=== PATIENT | male | born 1995 | race Caucasian/White ===

== ENCOUNTER 2018-10-26 21:57 | Inpatient (IN) | payer MEDICAID, OTHER ==
[~2018-10-26] VITALS: Ht 181.6 cm; Wt 73.8 kg
[2018-10-26] MEDS ORDERED: QUEtiapine FUMARATE 100 MG TABLET PO PRN (22:45)
[2018-10-26] MEDS ORDERED: LORazepam 2 MG TABLET PO PRN (22:45)
[2018-10-27 05:53] VITALS: BP 131/77
[2018-10-27] MEDS: FLUoxetine HCL 20 MG CAPSULE PO SCH (07:59)
[2018-10-27 08:16] VITALS: BP 121/62
[2018-10-27 16:08] VITALS: BP 128/61
[2018-10-27] MEDS ORDERED: MAG HYDROX/AL HYDROX/SIMETH ES 30 ML SUSPENSION UDCUP PO PRN (16:15)
[2018-10-27] MEDS ORDERED: LOPERAMIDE HCL 2 MG CAPSULE PO PRN (16:15)
[2018-10-27] MEDS ORDERED: GuaiFENesin/D-METHORPHAN [SUGAR-FREE] 200-20MG/10 ML SYRUP UDCUP PO PRN (16:15)
[2018-10-27] MEDS ORDERED: PROMETHAZINE HCL 25 MG TABLET PO PRN (16:15)
[2018-10-27] MEDS ORDERED: HydrOXYzine PAMOATE 50 MG CAPSULE PO PRN (16:15)
[2018-10-27] MEDS ORDERED: MAGNESIUM HYDROXIDE SUSPENSION 30 ML UDCUP PO PRN (16:15)
[2018-10-27] MEDS ORDERED: TUBERCULIN, PURIFIED PROTEIN DERIVATIVE 5 TU/0.1 ML SYRINGE ID ONE (16:15)
[2018-10-27] MEDS ORDERED: ACETAMINOPHEN 325 MG TABLET PO PRN (16:15)
[2018-10-27] MEDS ORDERED: QUEtiapine FUMARATE 100 MG TABLET PO PRN (18:45)
[2018-10-27] MEDS: THIAMINE HCL 100 MG TABLET PO SCH (20:39)
[2018-10-27] MEDS: ZOLPIDEM TARTRATE 10 MG TABLET PO PRN (21:08)
[2018-10-28 06:02] VITALS: BP 117/68
[2018-10-28] MEDS: FOLIC ACID 1 MG TABLET PO SCH (08:07)
[2018-10-28] MEDS: THIAMINE HCL 100 MG TABLET PO SCH ×2 (08:07→16:52)
[2018-10-28] MEDS: FLUoxetine HCL 20 MG CAPSULE PO SCH (08:07)
[2018-10-28] MEDS: MULTIVITAMINS WITH MINERALS, THERAPEUTIC TABLET PO SCH (08:07)
[2018-10-28 08:15] VITALS: BP 112/61
[2018-10-28 08:50] LABS: BASOPHILS % (AUTO) 0.5 % (0.0-2.0); EOSINOPHILS % (AUTO) 3.3 % (1.0-6.0); HEMOGLOBIN 13.2 g/dL (13.5-17.5); LYMPHOCYTES # (AUTO) 2.8 K/uL (1.0-4.8); LYMPHOCYTES % (AUTO) 35.9 % (22.0-44.0); MEAN CORPUSCULAR VOLUME 94 fL (80-100); MONOCYTES # (AUTO) 0.5 K/uL (0.1-1.0); MONOCYTES % (AUTO) 6.7 % (2.0-9.0); NEUTROPHILS # (AUTO) 4.1 K/uL (1.8-7.7); NEUTROPHILS % (AUTO) 53.6 % (40.0-70.0); PLATELET COUNT (AUTO) 272 K/uL (150-450); RED BLOOD CELL COUNT(AUTO) 4.25 MIL/uL (4.50-5.90); RED CELL DISTRIBUTION WIDTH 12.9 % (11.5-14.5)
[2018-10-28 09:44] LABS: ALANINE AMINOTRANSFERASE 32 U/L (12-78); ALBUMIN 3.9 g/dL (3.4-5.0); ALKALINE PHOSPHATASE 74 U/L (46-116); ANION GAP 9 mmol/L (8-16); ASPARTATE AMINOTRANSFERASE 19 U/L (15-37); BILIRUBIN,TOTAL 0.4 mg/dL (0.1-1.0); CALCIUM, TOTAL 8.9 mg/dL (8.8-10.5); CARBON DIOXIDE 25 mmol/L (22-29); CHLORIDE 105 mmol/L (98-107); CHOL/HDL RATIO 4.1 (4.2-7.3); CHOLESTEROL 150 mg/dL (131-200); FREE T4 (FREE THYROXINE) 1.05 ng/dL (0.76-1.46); GLOMERULAR FILTR. RATE CALC > 60 mL/min (>60); GLUCOSE,RANDOM 78 mg/dL (70-110); HDL CHOLESTEROL 37 mg/dL (40-60); LDL CHOL (CALC.) 103 mg/dL (0-130); POTASSIUM 4.3 mmol/L (3.5-5.1); SODIUM SERUM 139 mmol/L (136-145); THYROID STIMULATING HORMONE 1.29 uIU/mL (0.36-3.74); TOTAL PROTEIN, SERUM 6.3 g/dL (6.4-8.2); TRIGLYCERIDES 51 mg/dL (15-150)
[2018-10-28 10:00] LABS: UREA NITROGEN, BLOOD 23 mg/dL (7-18)
[2018-10-28] MEDS ORDERED: ARIP5TAB8 PO (13:36)
[2018-10-28] MEDS ORDERED: FLUO-191 PO (13:36)
[2018-10-28] MEDS ORDERED: ARIPiprazole 5 MG TABLET PO ONE (13:45)
[2018-10-28] MEDS ORDERED: NALT50TA PO (14:07)
[2018-10-28 16:00] VITALS: BP 116/61
[2018-10-28] MEDS ORDERED: ALBUTEROL SULFATE HFA 90 MCG/PUFF 8 GM INHALER IH PRN (18:00)
[2018-10-28] MEDS: ZOLPIDEM TARTRATE 10 MG TABLET PO PRN (20:19)
[2018-10-29 00:05] VITALS: BP 134/67
[2018-10-29] MEDS: MULTIVITAMINS WITH MINERALS, THERAPEUTIC TABLET PO SCH (08:00)
[2018-10-29] MEDS: FLUoxetine HCL 20 MG CAPSULE PO SCH (08:00)
[2018-10-29] MEDS: THIAMINE HCL 100 MG TABLET PO SCH (08:00)
[2018-10-29] MEDS: FOLIC ACID 1 MG TABLET PO SCH (08:00)
[2018-10-29] MEDS ORDERED: ARIP5TAB8 PO (08:01)
[2018-10-29] MEDS ORDERED: NALT50TA6 PO (08:01)
[2018-10-29] MEDS ORDERED: FLUO-191 PO (08:01)
[2018-10-29 08:15] VITALS: BP 132/84
[2018-10-29] MEDS ORDERED: ARIPiprazole 5 MG TABLET PO SCH (09:00)
[2018-10-29] MEDS ORDERED: NALTREXONE HCL 50 MG TABLET PO SCH (09:00)
== END 2018-10-29 10:37 | disposition home or self-care (01) | DRG 751 ==
LOC: EDSTATUS 21:57 → BV PSY EVL 22:42 → B2S 10-27 06:50
PROVIDERS: ADMIT Psychiatry & Neurology Psychiatry; ATTEND Psychiatry & Neurology Psychiatry
DX: F32.3 Major depressive disorder, single episode, severe with psychotic features (principal); R45.851 Suicidal ideations; F17.200 Nicotine dependence, unspecified, uncomplicated; J45.909 Unspecified asthma, uncomplicated; K58.9 Irritable bowel syndrome, unspecified; D64.9 Anemia, unspecified
CPT/HCPCS: 84439; 84443

== ENCOUNTER 2018-10-26 22:47 | Emergency (ER) | payer OTHER ==
[~2018-10-26] VITALS: Ht 180.3 cm; Wt 75.9 kg
[2018-10-27 02:12] LABS: BASOPHILS % (AUTO) 0.6 % (0.0-2.0); EOSINOPHILS % (AUTO) 2.6 % (1.0-6.0); HEMATOCRIT 38.9 % (41-53); HEMOGLOBIN 12.9 g/dL (13.5-17.5); LYMPHOCYTES # (AUTO) 3.5 K/uL (1.0-4.8); LYMPHOCYTES % (AUTO) 39.9 % (22.0-44.0); MEAN CORPUSCULAR HEMOGLOBIN 31.1 pg (26.0-34.0); MEAN CORPUSCULAR HGB CONC 33.2 G/dL (31.0-37.0); MEAN CORPUSCULAR VOLUME 94 fL (80-100); MONOCYTES # (AUTO) 0.5 K/uL (0.1-1.0); MONOCYTES % (AUTO) 6.2 % (2.0-9.0); NEUTROPHILS # (AUTO) 4.4 K/uL (1.8-7.7); NEUTROPHILS % (AUTO) 50.7 % (40.0-70.0); PLATELET COUNT (AUTO) 295 K/uL (150-450); RED BLOOD CELL COUNT(AUTO) 4.15 MIL/uL (4.50-5.90); RED CELL DISTRIBUTION WIDTH 13.2 % (11.5-14.5)
[2018-10-27 02:20] LABS: ANION GAP 8 mmol/L (8-16); CALCIUM, TOTAL 9.5 mg/dL (8.8-10.5); CARBON DIOXIDE 27 mmol/L (22-29); CHLORIDE 105 mmol/L (98-107); CREATININE 0.95 mg/dL (0.60-1.30); GLOMERULAR FILTR. RATE CALC > 60 mL/min (>60); GLUCOSE,RANDOM 93 mg/dL (70-110); POTASSIUM 4.1 mmol/L (3.5-5.1); SODIUM SERUM 140 mmol/L (136-145); UREA NITROGEN, BLOOD 19 mg/dL (7-18)
[2018-10-27 02:34] VITALS: BP 146/70
[2018-10-27 02:34] LABS: ALANINE AMINOTRANSFERASE 32 U/L (12-78); ALBUMIN 4.2 g/dL (3.4-5.0); ALKALINE PHOSPHATASE 78 U/L (46-116); ASPARTATE AMINOTRANSFERASE 22 U/L (15-37); BILIRUBIN,TOTAL 0.3 mg/dL (0.1-1.0); LIPASE 76 U/L (73-393); TOTAL PROTEIN, SERUM 6.9 g/dL (6.4-8.2)
[2018-10-27 02:47] LABS: APPEARANCE,URINE CLOUDY (CLEAR); BILIRUBIN,URINE NEGATIVE (NEGATIVE); GLUCOSE, URINE (UA) NEGATIVE (NEGATIVE); KETONES,URINE NEGATIVE (NEGATIVE); LEUKOCYTE ESTERASE ,URINE NEGATIVE (NEGATIVE); NITRATE,URINE NEGATIVE (NEGATIVE); OCCULT BLOOD,URINE NEGATIVE (NEGATIVE); PROTEIN,URINE NEGATIVE (NEGATIVE)
[2018-10-27 02:51] LABS: AMPHET/METH SCREEN,URINE NEGATIVE (NEGATIVE); BARBITURATE SCREEN, URINE NEGATIVE (NEGATIVE); BENZODIAZEPINES SCREEN,URINE NEGATIVE (NEGATIVE); CANNABINOID SCREEN,URINE NEGATIVE (NEGATIVE); COCAINE SCREEN,URINE NEGATIVE (NEGATIVE); METHADONE SCREEN, URINE NEGATIVE (NEGATIVE); OPIATE SCREEN,URINE NEGATIVE (NEGATIVE); PHENCYCLIDINE SCREEN,URINE NEGATIVE (NEGATIVE)
[2018-10-27] MEDS ORDERED: KETOROLAC TROMETHAMINE 60 MG/2 ML VIAL IM ONE (03:45)
[2018-10-28] MEDS ORDERED: FLUO-191 PO (13:36)
[2018-10-28] MEDS ORDERED: ARIP5TAB8 PO (13:36)
[2018-10-28] MEDS ORDERED: NALT50TA PO (14:07)
== END 2018-10-27 03:56 | disposition other institution (70) ==
LOC: EMS 22:48
DX: F32.9 Major depressive disorder, single episode, unspecified (principal); M54.5 Low back pain; J45.909 Unspecified asthma, uncomplicated
CPT/HCPCS: 36415; 80053; 80307; 81003; 83690; 85025; 96372; 99285; G0480; J1885